=== PATIENT | female | born 2000 | race American Indian/Alaskan Native ===

== ENCOUNTER 2021-11-08 14:11 | Outpatient (CLI) | payer OTHER ==
--- NOTE | 2021-11-08 17:12 | Ultrasound Report ---
ULTRASOUND THYROID INDICATION / CLINICAL INFORMATION: R59.1 ENLARGED GLAND. COMPARISON: None available. FINDINGS: RIGHT LOBE: Size = 4.1 x 1.2 x 2.1 cm. - Echogenicity: Normal. - Nodules < 1 cm: There is a tiny benign cyst in the right mid thyroid measuring up to 3 mm. - Nodules >= 1 cm or Suspicious Nodules: None. LEFT LOBE: Size = 4.8 x 1.3 x 2.3 cm. - Echogenicity: Normal. - Nodules < 1 cm: None. - Nodules >= 1 cm or Suspicious Nodules: - NODULE # 1 - Location: Left Lower - Size (cm): 2.8 x 1.5 x 2.1 - Significant Change (>= 20% in 2 dim. & inc. >= 2mm): No prior study - Composition: Mixed cystic & solid = 1 point - Echogenicity: Undetermined = 1 point - Shape: Sslno-[id number]-[id number] = 0 points - Margin: Smooth = 0 points - Echogenic Foci: None = 0 points - Additional Echogenic Foci: None = 0 points - Additional Findings: Peripheral vascularity is demonstrated. - ACR TI-RADS Score / Category = 2 points / TI-RADS 2 ISTHMUS: No significant abnormality. Thickness = 0.3 cm. - Nodules < 1 cm: None. - Nodules >= 1 cm or Suspicious Nodules: None. LYMPH NODES: No abnormal lymph nodes. PARATHYROID GLANDS: No abnormal parathyroid gland identified. ADDITIONAL FINDINGS: None. IMPRESSION: 1. There is a 2.8 cm nodule in the left lower thyroid, TI-RADS 2, see recommendations below. NOTE: Nodule size based on mean (average) size of 3 dimensions. NOTE: Nodules < 1 cm do not typically require follow-up or FNA unless there are suspicious features ( STEVIE, 2015) ACR TI-RADS Thyroid Nodule Recommendations TI-RADS 1 (0 points) ----- BENIGN. No Fine Needle Aspirate biopsy (FNA) or follow-up. TI-RADS 2 (1-2 points) -- NOT SUSPICIOUS. No FNA or follow-up. TI-RADS 3 (3 points) ----- MILDLY SUSPICIOUS. Follow up in 1 year if >= 1.5 cm. FNA if >= 2.5 cm. TI-RADS 4 (4-6 points) -- MODERATELY SUSPICIOUS. Follow up in 1 year if >= 1.0 cm. FNA if >= 1.5 cm. TI-RADS 5 (7+ points) --- HIGHLY SUSPICIOUS. Follow up in 1 year if >= 0.5 cm. FNA if >= 1.0 cm. Reference: ACR Thyroid Imaging, Reporting and Data System (TI-RADS): White Paper of the ACR TI-RADS C ommittee. J AM Minda Radiol 2017;14:587-595. (Additional recommendations based on [place] [employer] 2015 guidelines.) Signer Name: Farhana Hadley MD Signed: 11/08/2021 5:08 PM Workstation Name: [id number]
== END 2021-11-08 14:12 | disposition home or self-care (01) ==
LOC: US 14:11
PROVIDERS: ATTEND Family Medicine
DX: E04.1 Nontoxic single thyroid nodule (principal)
CPT/HCPCS: 76536